=== PATIENT | female | born 1985 | race Caucasian/White ===

== ENCOUNTER 2017-06-02 07:40 | Inpatient (IN) | payer OTHER ==
[~2017-06-02] VITALS: Ht 155 cm; Wt 64.0 kg
[2017-06-02] MEDS ORDERED: PREN1TAB80 PO (07:50)
[2017-06-02 07:54] VITALS: BP 153/82
[2017-06-02 09:16] LABS: BASOPHILS % (AUTO) 0.1 % (0.0-2.0); EOSINOPHILS % (AUTO) 0.1 % (1.0-6.0); HEMATOCRIT 39.1 % (36-46); HEMOGLOBIN 13.5 g/dL (12.0-16.0); LYMPHOCYTES # (AUTO) 1.2 K/uL (1.0-4.8); LYMPHOCYTES % (AUTO) 7.5 % (22.0-44.0); MEAN CORPUSCULAR HEMOGLOBIN 31.1 pg (26.0-34.0); MEAN CORPUSCULAR HGB CONC 34.5 G/dL (31.0-37.0); MEAN CORPUSCULAR VOLUME 90 fL (80-100); MONOCYTES # (AUTO) 0.8 K/uL (0.1-1.0); NEUTROPHILS # (AUTO) 13.6 K/uL (1.8-7.7); RED BLOOD CELL COUNT(AUTO) 4.33 MIL/uL (4.00-5.20); RED CELL DISTRIBUTION WIDTH 15.5 % (11.5-14.5); WHITE BLOOD COUNT (AUTO) 15.6 K/uL (4.5-11.0)
[2017-06-02 09:18] LABS: NEUTROPHILS % (AUTO) 87.3 % (40.0-70.0)
[2017-06-02 09:19] LABS: RBC MORPHOLOGY COMMENT NORMAL RBC MORPH
[2017-06-02 09:31] LABS: ANION GAP 12 mmol/L (8-16); CALCIUM, TOTAL 9.2 mg/dL (8.8-10.5); CARBON DIOXIDE 22 mmol/L (22-29); CHLORIDE 102 mmol/L (98-107); CREATININE 0.63 mg/dL (0.60-1.30); GLOMERULAR FILTR. RATE CALC > 60 mL/min (>60); SODIUM SERUM 136 mmol/L (136-145); UREA NITROGEN, BLOOD 9 mg/dL (7-18)
[2017-06-02 09:37] LABS: ALANINE AMINOTRANSFERASE 99 U/L (12-78); ALBUMIN 2.6 g/dL (3.4-5.0); ASPARTATE AMINOTRANSFERASE 138 U/L (15-37); BILIRUBIN,TOTAL 0.5 mg/dL (0.1-1.0); TOTAL PROTEIN, SERUM 6.5 g/dL (6.4-8.2); URIC ACID 5.2 mg/dL (2.6-7.2)
[2017-06-02] MEDS ORDERED: OXYTOCIN 30 UNITS/LACT RINGERS 500 ML IV ONE (09:59)
[2017-06-02] MEDS ORDERED: RINGERS SOLUTION,LACTATED 1,000 ML IV PRN (09:59)
[2017-06-02] MEDS ORDERED: METHYLERGONOVINE MALEATE 0.2 MG/ML VIAL IM PRN (10:00)
[2017-06-02] MEDS ORDERED: FentaNYL CITRATE-PF 100 MCG/2 ML VIAL IVP PRN (10:00)
[2017-06-02] MEDS ORDERED: LIDOCAINE HCL/PF 1% 30 ML VIAL INJ PRN (10:00)
[2017-06-02] MEDS ORDERED: METOCLOPRAMIDE HCL 5 MG/ML 2 ML VIAL IVP PRN (10:00)
[2017-06-02] MEDS ORDERED: CITRIC ACID/SODIUM CITRATE 30 ML SOLUTION UDCUP PO PRN (10:00)
[2017-06-02] MEDS ORDERED: RINGERS SOLUTION,LACTATED 1,000 ML IV ONE (10:26)
[2017-06-02] MEDS: RINGERS SOLUTION,LACTATED 1,000 ML IV SCH ×3 (10:43→21:56)
[2017-06-02] MEDS ORDERED: INFLUENZA VIRUS VACCINE QVS 2017-18 (3YR+)/PF 60 MCG/0.5 ML SYRINGE IM ONE (10:45)
[2017-06-02] MEDS: MISOPROSTOL 25 MCG TABLET VG SCH ×2 (11:03→17:12)
[2017-06-02] MEDS ORDERED: OXYGEN THERAPY IH SCH (20:00)
[2017-06-02] MEDS ORDERED: DINOPROSTONE 10 MG VAGINAL SUPPOSITORY EC ONE (21:30)
[2017-06-02] MEDS ORDERED: FentaNYL CITRATE-PF 100 MCG/2 ML VIAL ONE (23:55)
[2017-06-03] MEDS: FentaNYL CITRATE-PF 100 MCG/2 ML VIAL IVP PRN ×5 (00:01→11:37)
[2017-06-03] MEDS: RINGERS SOLUTION,LACTATED 1,000 ML IV SCH ×4 (05:25→19:46)
[2017-06-03] MEDS ORDERED: BUTORPHANOL TARTRATE 2 MG/ML VIAL IVP ONE (06:00)
[2017-06-03] MEDS ORDERED: FentaNYL/BUPIV 0.125%/NS/PF 200 ML ED ONE ×2 (10:21→23:18)
[2017-06-03] MEDS ORDERED: BUPIVACAINE HCL/PF 0.25% 30 ML VIAL ONE (11:44)
[2017-06-03] MEDS ORDERED: DINOPROSTONE 10 MG VAGINAL SUPPOSITORY VG ONE (11:45)
[2017-06-03] MEDS ORDERED: OXYTOCIN 30 UNITS/LACT RINGERS 500 ML IV PRN (12:26)
[2017-06-03] MEDS ORDERED: -PHARMACY NOTE- MISC ONE ×2 (23:45)
[2017-06-04] MEDS ORDERED: OXYTOCIN 20 UNITS/LACT RINGERS 1,000 ML IV ONE (02:00)
[2017-06-04] MEDS ORDERED: MEASLES/MUMPS/RUBELLA VACCINE, LIVE 0.5 ML/VIAL SQ ONE (04:45)
[2017-06-04] MEDS ORDERED: LANOLIN 7 GM OINTMENT TP PRN (04:45)
[2017-06-04] MEDS ORDERED: SENNA/DOCUSATE SODIUM 187-50 MG TABLET PO PRN (04:45)
[2017-06-04] MEDS ORDERED: BENZOCAINE 20%/MENTHOL 56 GM SPRAY CANISTER TP PRN (04:45)
[2017-06-04] MEDS ORDERED: GLYCERIN/WITCH HAZEL LEAF 40 PADS JAR TP PRN (04:45)
[2017-06-04] MEDS ORDERED: ACETAMINOPHEN/CODEINE 300-30 MG TABLET PO PRN (04:45)
[2017-06-04] MEDS ORDERED: MAGNESIUM HYDROXIDE SUSPENSION 30 ML UDCUP PO PRN (04:45)
[2017-06-04] MEDS: IBUPROFEN 600 MG TABLET PO PRN ×2 (06:04→14:22)
[2017-06-04] MEDS ORDERED: MAGNESIUM SULFATE 4 GM/WATER 100 ML IV ONE (06:30)
[2017-06-04] MEDS ORDERED: CALCIUM GLUCONATE 100 MG/ML 10 ML IVP PRN ×2 (06:30→21:30)
[2017-06-04] MEDS ORDERED: DEXTROSE 5%-0.2% SODIUM CHL 1,000 ML IV SCH (06:30)
[2017-06-04] MEDS: MAGNESIUM SULFATE 500 ML IV SCH ×2 (07:21→19:41)
[2017-06-04 07:22] LABS: CALCIUM, TOTAL 8.9 mg/dL (8.8-10.5); CREATININE 1.19 mg/dL (0.60-1.30); POTASSIUM 3.7 mmol/L (3.5-5.1)
[2017-06-04 07:27] LABS: BILIRUBIN,TOTAL 0.5 mg/dL (0.1-1.0); TOTAL PROTEIN, SERUM 5.5 g/dL (6.4-8.2); URIC ACID 7.1 mg/dL (2.6-7.2)
[2017-06-04] MEDS ORDERED: HydrALAZINE HCL 20 MG/ML VIAL IVP PRN ×2 (08:30→08:45)
[2017-06-04] MEDS ORDERED: RINGERS SOLUTION,LACTATED 1,000 ML IV ONE (12:04)
[2017-06-04] MEDS: RINGERS SOLUTION,LACTATED 1,000 ML IV SCH ×2 (12:06→23:43)
[2017-06-04 12:52] VITALS: BP 135/77
[2017-06-04] MEDS ORDERED: MAGNESIUM SULFATE 500 ML IV SCH (21:00)
[2017-06-05] MEDS: IBUPROFEN 600 MG TABLET PO PRN (03:56)
[2017-06-05 07:32] LABS: BASOPHILS % (AUTO) 0.4 % (0.0-2.0); EOSINOPHILS % (AUTO) 0.4 % (1.0-6.0); HEMATOCRIT 35.5 % (36-46); HEMOGLOBIN 12.1 g/dL (12.0-16.0); LYMPHOCYTES % (AUTO) 13.8 % (22.0-44.0); MEAN CORPUSCULAR HEMOGLOBIN 31.2 pg (26.0-34.0); MEAN CORPUSCULAR VOLUME 92 fL (80-100); MONOCYTES # (AUTO) 0.6 K/uL (0.1-1.0); MONOCYTES % (AUTO) 4.3 % (2.0-9.0); NEUTROPHILS # (AUTO) 11.9 K/uL (1.8-7.7); NEUTROPHILS % (AUTO) 81.1 % (40.0-70.0); RED BLOOD CELL COUNT(AUTO) 3.87 MIL/uL (4.00-5.20); RED CELL DISTRIBUTION WIDTH 16.9 % (11.5-14.5); WHITE BLOOD COUNT (AUTO) 14.7 K/uL (4.5-11.0)
[2017-06-05 07:48] LABS: ALANINE AMINOTRANSFERASE 30 U/L (12-78); ALBUMIN 1.9 g/dL (3.4-5.0); ANION GAP 7 mmol/L (8-16); ASPARTATE AMINOTRANSFERASE 39 U/L (15-37); BILIRUBIN,TOTAL 0.2 mg/dL (0.1-1.0); CARBON DIOXIDE 28 mmol/L (22-29); CHLORIDE 105 mmol/L (98-107); CREATININE 0.71 mg/dL (0.60-1.30); GLOMERULAR FILTR. RATE CALC > 60 mL/min (>60); POTASSIUM 3.9 mmol/L (3.5-5.1); SODIUM SERUM 140 mmol/L (136-145); TOTAL PROTEIN, SERUM 5.5 g/dL (6.4-8.2); UREA NITROGEN, BLOOD 9 mg/dL (7-18); URIC ACID 5.9 mg/dL (2.6-7.2)
[2017-06-05] MEDS ORDERED: IBUP-2070 PO (16:57)
[2017-06-05] MEDS ORDERED: NIFE10 PO (16:58)
== END 2017-06-05 17:30 | disposition left against medical advice (07) | DRG 775 ==
LOC: OBSVTOIN 07:40 → 4S 07:40
PROVIDERS: ADMIT Obstetrics & Gynecology; ATTEND Obstetrics & Gynecology
PROC: 3E0R3BZ Introduction of Anesthetic Agent into Spinal Canal, Percutaneous Approach (ICD-10-PCS; 2017-06-02)
PROC: 00HU33Z Insertion of Infusion Device into Spinal Canal, Percutaneous Approach (ICD-10-PCS; 2017-06-02)
PROC: 10E0XZZ Delivery of Products of Conception, External Approach (ICD-10-PCS; principal; 2017-06-04)
PROC: 3E0334Z Introduction of Serum, Toxoid and Vaccine into Peripheral Vein, Percutaneous Approach (ICD-10-PCS; 2017-06-04)
PROC: 0UQMXZZ Repair Vulva, External Approach (ICD-10-PCS; 2017-06-04)
DX: O14.14 Severe pre-eclampsia complicating childbirth (principal); O69.81X0 Labor and delivery complicated by cord around neck, without compression, not applicable or unspecified; O16.4 Unspecified maternal hypertension, complicating childbirth; Z53.21 Procedure and treatment not carried out due to patient leaving prior to being seen by health care provider; O71.82 Other specified trauma to perineum and vulva; Z3A.38 38 weeks gestation of pregnancy; Z37.0 Single live birth; Z28.21 Immunization not carried out because of patient refusal
CPT/HCPCS: 83735; 84550; 85461; 86850; 86870; 86900; 86901; J0595; J2590; J3010; J3475; J3490; J7120

== ENCOUNTER 2019-09-28 00:25 | Observation (INO) | payer OTHER ==
[~2019-09-28] VITALS: Ht 154.9 cm; Wt 66.7 kg
[~2019-09-28 00:25] MED LIST: IBUP-2070 PO; NIFE10 PO; PREN1TAB80 PO
[2019-09-28 01:03] VITALS: BP 136/90
[2019-09-28] MEDS ORDERED: ACETAMINOPHEN 500 MG TABLET PO ONE (01:30)
[2019-09-28 02:06] LABS: BASOPHILS % (AUTO) 0.3 % (0.0-2.0); EOSINOPHILS % (AUTO) 1.1 % (1.0-6.0); HEMATOCRIT 40.3 % (36-46); HEMOGLOBIN 14.1 g/dL (12.0-16.0); LYMPHOCYTES # (AUTO) 2.1 K/uL (1.0-4.8); LYMPHOCYTES % (AUTO) 23.9 % (22.0-44.0); MEAN CORPUSCULAR HEMOGLOBIN 32.8 pg (26.0-34.0); MEAN CORPUSCULAR HGB CONC 34.9 G/dL (31.0-37.0); MEAN CORPUSCULAR VOLUME 94 fL (80-100); MONOCYTES # (AUTO) 0.6 K/uL (0.1-1.0); NEUTROPHILS # (AUTO) 5.8 K/uL (1.8-7.7); NEUTROPHILS % (AUTO) 67.7 % (40.0-70.0); PLATELET COUNT (AUTO)-OB 195 K/uL (150-450); RED BLOOD CELL COUNT(AUTO) 4.29 MIL/uL (4.00-5.20); RED CELL DISTRIBUTION WIDTH 13.1 % (11.5-14.5)
[2019-09-28 02:15] LABS: ANION GAP 8 mmol/L (8-16); CALCIUM, TOTAL 8.9 mg/dL (8.8-10.5); CARBON DIOXIDE 25 mmol/L (22-29); CHLORIDE 103 mmol/L (98-107); CREATININE 0.48 mg/dL (0.60-1.30); GLOMERULAR FILTR. RATE CALC > 60 mL/min (>60); GLUCOSE,RANDOM 80 mg/dL (70-110); POTASSIUM 3.8 mmol/L (3.5-5.1); SODIUM SERUM 136 mmol/L (136-145); UREA NITROGEN, BLOOD 11 mg/dL (7-18)
[2019-09-28 02:20] LABS: ALANINE AMINOTRANSFERASE 14 U/L (12-78); ALBUMIN 2.8 g/dL (3.4-5.0); ALKALINE PHOSPHATASE 138 U/L (46-116); ASPARTATE AMINOTRANSFERASE 14 U/L (15-37); BILIRUBIN,TOTAL 0.3 mg/dL (0.1-1.0); TOTAL PROTEIN, SERUM 6.8 g/dL (6.4-8.2); URIC ACID 4.1 mg/dL (2.6-7.2)
== END 2019-09-28 03:00 | disposition home or self-care (01) ==
LOC: 4S 00:25
PROVIDERS: ADMIT Obstetrics & Gynecology; ATTEND Obstetrics & Gynecology
DX: O26.893 Other specified pregnancy related conditions, third trimester (principal); R03.0 Elevated blood-pressure reading, without diagnosis of hypertension; R51 Headache; Z3A.38 38 weeks gestation of pregnancy
CPT/HCPCS: 36415; 80053; 81001; 84550; 85025; G0378

== ENCOUNTER 2019-10-02 11:55 | Inpatient (IN) | payer OTHER ==
[~2019-10-02] VITALS: Ht 154.9 cm; Wt 67.1 kg
[2019-10-02] MEDS ORDERED: ROPIVACAINE HCL/PF 0.2% 100 ML ED ONE (12:50)
[2019-10-02] MEDS ORDERED: OXYTOCIN 30 UNITS/LACT RINGERS 500 ML IV ONE ×2 (12:51→17:10)
[2019-10-02] MEDS ORDERED: RINGERS SOLUTION,LACTATED 1,000 ML IV PRN (12:51)
[2019-10-02] MEDS ORDERED: OXYTOCIN 30 UNITS/LACT RINGERS 500 ML IV PRN (12:51)
[2019-10-02] MEDS ORDERED: RINGERS SOLUTION,LACTATED 1,000 ML IV SCH (12:51)
[2019-10-02] MEDS ORDERED: OXYGEN THERAPY IH SCH ×2 (13:00→20:00)
[2019-10-02] MEDS ORDERED: METOCLOPRAMIDE HCL 5 MG/ML 2 ML VIAL IVP PRN (13:00)
[2019-10-02] MEDS ORDERED: METHYLERGONOVINE MALEATE 0.2 MG/ML VIAL IM PRN (13:00)
[2019-10-02] MEDS ORDERED: CITRIC ACID/SODIUM CITRATE 30 ML SOLUTION UDCUP PO PRN (13:00)
[2019-10-02] MEDS ORDERED: ONDANSETRON HCL 4 MG/2 ML VIAL IVP PRN (13:15)
[2019-10-02] MEDS ORDERED: DiphenhydrAMINE HCL 50 MG/ML VIAL IVP PRN (13:15)
[2019-10-02] MEDS ORDERED: ROPIVACAINE HCL/PF 0.2% 100 ML ED PRN (13:15)
[2019-10-02 13:49] LABS: BASOPHILS % (AUTO) 0.3 % (0.0-2.0); EOSINOPHILS % (AUTO) 0.4 % (1.0-6.0); HEMATOCRIT 42.4 % (36-46); HEMOGLOBIN 14.3 g/dL (12.0-16.0); LYMPHOCYTES # (AUTO) 1.5 K/uL (1.0-4.8); LYMPHOCYTES % (AUTO) 11.8 % (22.0-44.0); MEAN CORPUSCULAR HEMOGLOBIN 32.1 pg (26.0-34.0); MEAN CORPUSCULAR HGB CONC 33.8 G/dL (31.0-37.0); MEAN CORPUSCULAR VOLUME 95 fL (80-100); MONOCYTES # (AUTO) 0.7 K/uL (0.1-1.0); MONOCYTES % (AUTO) 5.8 % (2.0-9.0); NEUTROPHILS # (AUTO) 10.3 K/uL (1.8-7.7); NEUTROPHILS % (AUTO) 81.7 % (40.0-70.0); PLATELET COUNT (AUTO)-OB 197 K/uL (150-450); RED BLOOD CELL COUNT(AUTO) 4.47 MIL/uL (4.00-5.20); RED CELL DISTRIBUTION WIDTH 12.8 % (11.5-14.5)
[2019-10-02 14:00] LABS: ANION GAP 10 mmol/L (8-16); CALCIUM, TOTAL 8.6 mg/dL (8.8-10.5); CARBON DIOXIDE 25 mmol/L (22-29); CHLORIDE 103 mmol/L (98-107); CREATININE 0.44 mg/dL (0.60-1.30); GLOMERULAR FILTR. RATE CALC > 60 mL/min (>60); GLUCOSE,RANDOM 83 mg/dL (70-110); POTASSIUM 3.5 mmol/L (3.5-5.1); SODIUM SERUM 138 mmol/L (136-145); UREA NITROGEN, BLOOD 6 mg/dL (7-18)
[2019-10-02 14:06] LABS: ALANINE AMINOTRANSFERASE 15 U/L (12-78); ALBUMIN 2.6 g/dL (3.4-5.0); ALKALINE PHOSPHATASE 135 U/L (46-116); ASPARTATE AMINOTRANSFERASE 16 U/L (15-37); BILIRUBIN,TOTAL 0.2 mg/dL (0.1-1.0); TOTAL PROTEIN, SERUM 6.4 g/dL (6.4-8.2); URIC ACID 3.8 mg/dL (2.6-7.2)
[2019-10-02] MEDS ORDERED: MINERAL OIL 30 ML UDCUP VG ONE (16:00)
[2019-10-02] MEDS ORDERED: LIDOCAINE/PF 1% 30 ML VIAL INJ PRN (17:15)
[2019-10-02] MEDS ORDERED: MAGNESIUM HYDROXIDE SUSPENSION 30 ML UDCUP PO PRN (17:15)
[2019-10-02] MEDS ORDERED: LANOLIN 7 GM OINTMENT TP PRN (17:15)
[2019-10-02] MEDS ORDERED: BENZOCAINE 20%/MENTHOL 56 GM SPRAY CANISTER TP PRN (17:15)
[2019-10-02] MEDS ORDERED: OxyCODONE HCL/ACETAMINOPHEN 5-325 MG TABLET PO PRN ×2 (17:15)
[2019-10-02] MEDS ORDERED: GLYCERIN/WITCH HAZEL LEAF 40 PADS JAR TP PRN (17:15)
[2019-10-02] MEDS ORDERED: CYCLOBENZAPRINE HCL 10 MG TABLET PO PRN (17:15)
[2019-10-02] MEDS ORDERED: LIDOCAINE/PF 2% 5 ML VIAL ONE (18:02)
[2019-10-02] MEDS ORDERED: MIDAZOLAM HCL 2 MG/2 ML VIAL ONE (18:02)
[2019-10-02] MEDS ORDERED: FentaNYL CITRATE-PF 100 MCG/2 ML VIAL ONE (18:02)
[2019-10-02] MEDS ORDERED: FentaNYL CITRATE-PF 100 MCG/2 ML VIAL IVP PRN (18:30)
[2019-10-02] MEDS ORDERED: HYDROmorphone 2 MG/ML SYRINGE IVP PRN (18:30)
[2019-10-02] MEDS ORDERED: MEPERIDINE-PF 25 MG/ML VIAL IVP PRN (18:30)
[2019-10-02 19:20] VITALS: BP 148/88
[2019-10-02] MEDS ORDERED: RINGERS SOLUTION,LACTATED 1,000 ML IV ONE (20:15)
[2019-10-02] MEDS: OxyCODONE HCL/ACETAMINOPHEN 5-325 MG TABLET PO PRN (20:46)
[2019-10-03 04:43] VITALS: BP 112/61
[2019-10-03] MEDS ORDERED: KETOROLAC TROMETHAMINE 60 MG/2 ML VIAL IM ONE (05:16)
[2019-10-03] MEDS ORDERED: METOCLOPRAMIDE HCL 5 MG/ML 2 ML VIAL IVP ONE (05:16)
[2019-10-03] MEDS ORDERED: ONDANSETRON HCL 4 MG/2 ML VIAL IVP ONE (05:16)
[2019-10-03] MEDS ORDERED: DEXAMETHASONE SOD PHOS 4 MG/ML VIAL IVP ONE (05:16)
[2019-10-03 05:34] LABS: BASOPHILS % (AUTO) 0.2 % (0.0-2.0); EOSINOPHILS % (AUTO) 0.1 % (1.0-6.0); HEMATOCRIT 40.8 % (36-46); HEMOGLOBIN 13.7 g/dL (12.0-16.0); LYMPHOCYTES # (AUTO) 1.3 K/uL (1.0-4.8); LYMPHOCYTES % (AUTO) 7.9 % (22.0-44.0); MEAN CORPUSCULAR HEMOGLOBIN 31.7 pg (26.0-34.0); MEAN CORPUSCULAR HGB CONC 33.7 G/dL (31.0-37.0); MEAN CORPUSCULAR VOLUME 94 fL (80-100); MONOCYTES # (AUTO) 0.4 K/uL (0.1-1.0); MONOCYTES % (AUTO) 2.6 % (2.0-9.0); NEUTROPHILS # (AUTO) 14.4 K/uL (1.8-7.7); PLATELET COUNT (AUTO)-OB 190 K/uL (150-450); RED BLOOD CELL COUNT(AUTO) 4.33 MIL/uL (4.00-5.20); RED CELL DISTRIBUTION WIDTH 13.3 % (11.5-14.5)
[2019-10-03 05:35] LABS: NEUTROPHILS % (AUTO) 89.2 % (40.0-70.0)
[2019-10-03] MEDS: IBUPROFEN 800 MG TABLET PO PRN ×2 (05:38→11:39)
[2019-10-03] MEDS ORDERED: IBUP-2071 PO (13:52)
[2019-10-03] MEDS ORDERED: DOCU-275 PO (13:52)
[2019-10-03] MEDS: OxyCODONE HCL/ACETAMINOPHEN 5-325 MG TABLET PO PRN (15:43)
== END 2019-10-03 18:20 | disposition home or self-care (01) | DRG 798 ==
LOC: 4S 11:55 → OBSVTOIN 11:55 → NSY 17:40 → 4S 17:41
PROVIDERS: ADMIT Obstetrics & Gynecology; ATTEND Obstetrics & Gynecology
PROC: 10E0XZZ Delivery of Products of Conception, External Approach (ICD-10-PCS; principal; 2019-10-02)
PROC: 0UB77ZZ Excision of Bilateral Fallopian Tubes, Via Natural or Artificial Opening (ICD-10-PCS; 2019-10-02)
PROC: 10907ZC Drainage of Amniotic Fluid, Therapeutic from Products of Conception, Via Natural or Artificial Opening (ICD-10-PCS; 2019-10-02)
PROC: 3E0R3BZ Introduction of Anesthetic Agent into Spinal Canal, Percutaneous Approach (ICD-10-PCS; 2019-10-02)
PROC: 00HU33Z Insertion of Infusion Device into Spinal Canal, Percutaneous Approach (ICD-10-PCS; 2019-10-02)
PROC: 30233S1 Transfusion of Nonautologous Globulin into Peripheral Vein, Percutaneous Approach (ICD-10-PCS; 2019-10-03)
DX: O69.81X0 Labor and delivery complicated by cord around neck, without compression, not applicable or unspecified (principal); Z37.0 Single live birth; O14.94 Unspecified pre-eclampsia, complicating childbirth; O77.0 Labor and delivery complicated by meconium in amniotic fluid; Z3A.38 38 weeks gestation of pregnancy
CPT/HCPCS: 82570; 84156; 84550; 85461; 86850; 86870; 86900; 86901; 88302; J1100; J1885; J2250; J2405; J2590; J2765; J2795; J3010; J3490; J7120